=== PATIENT | female | born 1945 | race Caucasian/White ===

== ENCOUNTER 2016-11-08 10:36 | Emergency (ER) | payer OTHER, MEDICARE ==
[~2016-11-08] VITALS: Ht 157.5 cm; Wt 62.6 kg
--- NOTE | 2016-11-08 11:07 | ED MVC/FALL/TRAUMA COMPLAINT ---
History of Present Illness General Chief Complaint: Laceration Procedure Stated Complaint: FELL ON ICE, HEAD LAC Source: patient, family Exam Limitations: no limitations Vital Signs & Intake/Output Vital Signs & Intake/Output Vital Signs Date Time Temp Pulse Resp B/P Pulse O2 O2 Flow FiO2 Ox Delivery Rate 11/08 1234 97.0 60 16 157/84 97 Room Air 11/08 1043 97.4 67 20 137/84 100 Room Air Allergies Coded Allergies: No Known Drug Allergies (11/08/16) Triage Note: FELL IN BATHROOM, HIT CORNER OF WALL, 4 INCH LACERATION TO FOREHEAD. NO LOC. Triage Nurses Notes Reviewed? yes HPI: Patient is a 71-year-old female presents complaining of forehead laceration status post fall. Patient tripped and fell in her bathroom striking her forehead against the edge of the door. Injury occurred approximately 2 hours ago. Pain is throbbing currently moderate, worsens with palpation. Patient reports she is up-to-date with her tetanus immunization. Patient denies loss of consciousness, numbness, weakness. (JACKIE TOURE) Past History Travel History Traveled to [place] past 21 day No Medical History Any Pertinent Medical History? see below for history Cardiovascular: hypertension Surgical History Surgical History: non-contributory Psychosocial History What is your primary language Kiswahili Tobacco Use: Never used ETOH Use: denies use Family History Hx Contributory? No (JACKIE TOURE) Review of Systems Review of Systems Constitutional: Reports: no symptoms. Eyes: Denies: blurred vision. Ears, Nose, Throat, Mouth: Reports: no symptoms. Cardiovascular: Denies: chest pain, syncope. Gastrointestinal/Abdominal: Denies: abdominal pain, vomiting. Musculoskeletal: Denies: back pain, neck pain. Skin: Reports: no symptoms. Neurological/Psychological: Reports: headache (mild). Denies: confusion, numbness. (JACKIE TOURE) Physical Exam Physical Exam General Appearance: well developed/nourished, alert, awake Head: 3.2 cm vertical laceration to the medial forehead, extending into the hairline Eyes: Bilateral: normal appearance, PERRL, EOMI. Ears, Nose, Throat, Mouth: hearing grossly normal, moist mucous membrane Neck: normal inspection, supple, full range of motion, no midline tenderness Respiratory: no respiratory distress Gastrointestinal: soft, non-tender Back: normal inspection, normal range of motion, no vertebral tenderness Extremities: normal range of motion Neurologic/Psych: no motor/sensory deficits, awake, alert, oriented x 3, normal gait, normal mood/affect, custom dressmaker II-XII nml as tested Skin: warm/dry Diagram Head: 1) 3.2 cm laceration Core Measures ACS in differential dx? No Severe Sepsis Present: No Septic Shock Present: No (JACKIE TOURE) Progress Differential Diagnosis: ICH, skull fracture, laceration, foreign body Plan of Care: Patient initially requested plastic surgeon. I discussed with the patient contacting plastic surgery versus primary wound closure by me in the emergency department and potentially following up with plastic surgeon. Patient and her are comfortable with me performing the wound closure. Patient discussed with dr. Casey. No acute neurologic abnormalities. Patient is not on any antiplatelet or anticoagulant medication. Neuro imaging deferred secondary to exam. (JACKIE TOURE) Departure Departure Disposition: HOME OR SELF CARE Condition: Stable Clinical Impression Primary Impression: Forehead laceration Qualifiers: Encounter type: initial encounter Qualified Code: S01.81XA - Laceration without foreign body of other part of head, initial encounter Referrals: PURA GONZALEZ,AIDEE TO MD,TELLY (PCP/Family) Additional Instructions: Change the dressing daily. Bacitracin tomorrow and the next day to the wound with dressing change. Follow up with Dr. Lozano(plastic surgeon) this week for further evaluation or return to the ER in 5 days for suture removal. Return immediately if pus from the wound, redness spreading, fevers, or worsening of symptoms. Departure Forms: Customer Survey General Discharge Information (JACKIE TOURE) PA/GLUE CLAMP OPERATOR Co-Sign Statement Statement: ED Attending supervision documentation- x I saw and evaluated the patient. I have also reviewed all the pertinent lab results and diagnostic results. I agree with the findings and the plan of care as documented in the PA's/GLUE CLAMP OPERATOR's documentation. [] I have reviewed the ED Record and agree with the PA's/GLUE CLAMP OPERATOR's documentation. [] Additions or exceptions (if any) to the PAs/GLUE CLAMP OPERATOR's note and plan are summarized below: [] (WHIT GONZALEZ,JOSH)
[2016-11-08 12:34] VITALS: BP 157/84
== END 2016-11-08 12:41 ==
LOC: ERH 10:36
DX: S01.81XA Laceration without foreign body of other part of head, initial encounter (principal); W18.09XA Striking against other object with subsequent fall, initial encounter; Y92.002 Bathroom of unspecified non-institutional (private) residence as the place of occurrence of the external cause